=== PATIENT | female | born 1960 | race African-American/Black ===

== ENCOUNTER 2017-05-22 14:36 | Emergency (ER) | payer SELFPAY ==
[2017-05-22] MEDS ORDERED: Sodium Chloride 0.9% 10 ML Syringe FLUSH PRN (15:02)
[2017-05-22] MEDS ORDERED: Sodium Chloride 0.9% 2.5 ML Syringe FLUSH PRN (15:02)
--- NOTE | 2017-05-22 15:06 | EDM.PDOC ---
ED HPI GENERAL MEDICAL PROBLEM - General Chief Complaint: Cardiovascular Problem Stated Complaint: PAIN AND NUMBNESS ON LT SHOULDER Time Seen by Provider: 05/22/17 15:00 Source of Information: Reports: Patient History Limitations: Reports: No Limitations - History of Present Illness INITIAL COMMENTS - FREE TEXT/NARRATIVE: HISTORY AND PHYSICAL: [56-year-old female presenting with complaints of numbness and tingling in the left arm.] History of Present Illness: [56-year-old female presents to the emergency room today with complaints of numbness and tingling in her left arm which radiates up into her neck for the past 4 days. Patient reports that she felt like she slept "on my arm wrong" though wanted to be evaluated. Family history of cardiac disease.] Review of Systems: As per history of present illness and below otherwise all systems reviewed and negative. Past medical history: As per history of present illness and as reviewed below otherwise noncontributory. Surgical history: As per history of present illness and as reviewed below otherwise noncontributory. Social history: No reported history of drug or alcohol abuse. Family history: As per history of present illness and as reviewed below otherwise noncontributory. Physical exam: HEENT: Atraumatic, normocehpalic, pupils reactive, negative for conjunctival pallor or scleral icterus, mucous membranes moist, throat clear, neck supple, nontender, trachea midline. Lungs: Clear to auscultation, breath sounds equal bilaterally, chest non tender. Heart: S1S2, regular, negative for clicks, rubs, or JVD. Abdomen: Soft, nondistended, nontender. Negative for masses or hepatossplenmegaly. Negative for costovertebral tenderness. Pelvis: Stable nontender. Genitourinary: Deferred. Rectal: Deferred Extremities: Atraumatic, negative for cords or calf pain. Neurovascular unremarkable. Neuro: Awake, alert, oriented. Cranial nerves II through XII unremarkable. Cerebellum unremarkable. Motor and sensory unremarkable throughout. Exam nonfocal. Diagnostics: [CBC, CMP, troponin, EKG, UA, 1 view chest,] Therapeutics: [IV] Impression: [Degenerative disc disease] Plan: [Follow-up with neurology if numbness and tingling continue. establish primary care provider] Definitive disposition and diagnosis as appropriate pending reevaluation and review of above. - Related Data Allergies Allergy/AdvReac Type Severity Reaction Status Date / Time dust Allergy Difficulty Uncoded 05/22/17 14:53 Breathing Home Meds: Home Meds amLODIPine [Norvasc] 10 tab PO DAILY 09/30/16 [History] amLODIPine Besylate [Amlodipine Besylate] 10 mg PO DAILY #30 tablet 05/22/17 [Rx ] Past Medical History - Past Health History Medical/Surgical History: Denies Medical/Surgical History Other HEENT History: Tonsilectomy and adenoid removal Cardiovascular History: Reports: Hypertension Other Cardiovascular History: Pt stated taking blood pressure medications of diffent kinds for 5 years Respiratory History: Reports: Asthma Gastrointestinal History: Reports: Hiatal Hernia Other Musculoskeletal History: Pt compalins of pain on the lower back that's has been going on for more than a month now. Claimed did not take any medication for it. - Infectious Disease History Infectious Disease History: Reports: Chicken Pox - Past Surgical History HEENT Surgical History: Reports: Adenoidectomy, Tonsillectomy GI Surgical History: Reports: Hernia, Abdominal, Hernia, Inguinal, Hernia Repair /Other Female Surgical History: Reports: Section Social & Family History - Family History Family Medical History: Noncontributory - Tobacco Use Smoking Status *Q: Never Smoker Second Hand Smoke Exposure: No - Caffeine Use Caffeine Use: Reports: Coffee Caffeine Use Comment: Pt stated drinking coffee "every now and then" - Alcohol Use Days Per Week of Alcohol Use: 7 Number of Drinks Per Day: 1 Total Drinks Per Week: 7 - Recreational Drug Use Recreational Drug Use: No ED ROS GENERAL - Review of Systems Review Of Systems: See Below ED EXAM, GENERAL - Physical Exam Exam: See Below (See dictation) EKG INTERPRETATION EKG Date: 05/22/17 Rhythm: NSR Comparison: NA - No Prior EKG Course - Vital Signs Last Recorded V/S: Last Vital Signs Temp 36.4 C 05/22/17 14:50 Pulse 85 05/22/17 14:50 Resp 20 05/22/17 14:50 BP 124/69 05/22/17 14:50 Pulse Ox 97 05/22/17 15:16 - Orders/Labs/Meds Orders: Active Orders 24 hr Category Date Time Status Cardiac Monitoring [RC] . DIRECTED Care 05/22/17 15:02 Active EKG Documentation Completion [RC] STAT Care 05/22/17 15:02 Active Oxygen Therapy, ED [RC] ASDIRECTED Care 05/22/17 15:02 Active Cervical Spine 2V or 3V [CR] Stat Exams 05/22/17 16:02 Taken Sodium Chloride 0.9% [Saline Flush] Med 05/22/17 15:02 Active 10 ml FLUSH ASDIRECTED PRN Sodium Chloride 0.9% [Saline Flush] Med 05/22/17 15:02 Active 2.5 ml FLUSH ASDIRECTED PRN Saline Lock Insert [OM.PC] Stat Oth 05/22/17 15:02 Ordered Medication Orders Sodium Chloride (Saline Flush) 10 ml FLUSH ASDIRECTED PRN PRN Reason: Keep Vein Open Sodium Chloride (Saline Flush) 2.5 ml FLUSH ASDIRECTED PRN PRN Reason: Keep Vein Open Labs: Laboratory Tests 05/22/17 05/22/17 05/22/17 Range/Units 15:19 15:19 15:19 WBC 7.27 (4.0-11.0) K/uL RBC 4.34 (4.30-5.90) M/uL Hgb 13.1 (12.0-16.0) g/dL Hct 39.1 (36.0-46.0) % MCV 90.1 (80.0-98.0) fL MCH 30.2 (27.0-32.0) pg MCHC 33.5 (31.0-37.0) g/dL RDW Std Deviation 46.1 (28.0-62.0) fl RDW Coeff of Mary 14 (11.0-15.0) % Plt Count 180 (150-400) K/uL MPV 11.00 (7.40-12.00) fL Neut % (Auto) 57.2 (48.0-80.0) % Lymph % (Auto) 29.3 (16.0-40.0) % [place] % (Auto) 8.8 (0.0-15.0) % Eos % (Auto) 4.3 (0.0-7.0) % Baso % (Auto) 0.4 (0.0-1.5) % Neut # (Auto) 4.2 (1.4-5.7) K/uL Lymph # (Auto) 2.1 (0.6-2.4) K/uL [place] # (Auto) 0.6 (0.0-0.8) K/uL Eos # (Auto) 0.3 (0.0-0.7) K/uL Baso # (Auto) 0.0 (0.0-0.1) K/uL Nucleated RBC % 0.0 /100WBC Nucleated RBCs # 0 K/uL Sodium 143 (136-146) mmol/L Potassium 3.9 (3.5-5.1) mmol/L Chloride 110 (98-110) mmol/L Carbon Dioxide 27 (21-31) mmol/L BUN 19 (6.0-23.0) mg/dL Creatinine 1.0 (0.6-1.5) mg/dL Est Cr Clr Drug Dosing 52.95 mL/min Estimated GFR (MDRD) > 60.0 ml/min Glucose 83 (60-110) mg/dL Calcium 9.7 (8.8-10.8) mg/dL Total Bilirubin 1.1 (0.1-1.5) mg/dL AST 27 (5-40) IU/L ALT 31 (8-54) IU/L Alkaline Phosphatase 64 (40-150) Troponin I < 0.10 (0.0-0.29) NG/ML Total Protein 6.4 (6.0-8.0) g/dL Albumin 3.5 (3.5-5.0) g/dL Globulin 2.9 (2.0-3.5) g/dL Albumin/Globulin Ratio 1.2 L (1.3-2.8) Urine Color Urine Appearance Urine pH (5.0-8.0) Ur Specific [place] (1.001-1.035) Urine Protein (NEGATIVE) mg/dL Urine Glucose (UA) (NEGATIVE) mg/dL Urine Ketones (NEGATIVE) mg/dL Urine Occult Blood (NEGATIVE) Urine Nitrite (NEGATIVE) Urine Bilirubin (NEGATIVE) Urine Urobilinogen (<2.0) EU/dL Ur Leukocyte Esterase (NEGATIVE) Urine RBC (0-2/HPF) Urine WBC (0-5/HPF) Ur Epithelial Cells (NONE-FEW) Urine Bacteria (NEGATIVE) 05/22/17 Range/Units 15:35 WBC (4.0-11.0) K/uL RBC (4.30-5.90) M/uL Hgb (12.0-16.0) g/dL Hct (36.0-46.0) % MCV (80.0-98.0) fL MCH (27.0-32.0) pg MCHC (31.0-37.0) g/dL RDW Std Deviation (28.0-62.0) fl RDW Coeff of Mary (11.0-15.0) % Plt Count (150-400) K/uL MPV (7.40-12.00) fL Neut % (Auto) (48.0-80.0) % Lymph % (Auto) (16.0-40.0) % [place] % (Auto) (0.0-15.0) % Eos % (Auto) (0.0-7.0) % Baso % (Auto) (0.0-1.5) % Neut # (Auto) (1.4-5.7) K/uL Lymph # (Auto) (0.6-2.4) K/uL [place] # (Auto) (0.0-0.8) K/uL Eos # (Auto) (0.0-0.7) K/uL Baso # (Auto) (0.0-0.1) K/uL Nucleated RBC % /100WBC Nucleated RBCs # K/uL Sodium (136-146) mmol/L Potassium (3.5-5.1) mmol/L Chloride (98-110) mmol/L Carbon Dioxide (21-31) mmol/L BUN (6.0-23.0) mg/dL Creatinine (0.6-1.5) mg/dL Est Cr Clr Drug Dosing mL/min Estimated GFR (MDRD) ml/min Glucose (60-110) mg/dL Calcium (8.8-10.8) mg/dL Total Bilirubin (0.1-1.5) mg/dL AST (5-40) IU/L ALT (8-54) IU/L Alkaline Phosphatase (40-150) Troponin I (0.0-0.29) NG/ML Total Protein (6.0-8.0) g/dL Albumin (3.5-5.0) g/dL Globulin (2.0-3.5) g/dL Albumin/Globulin Ratio (1.3-2.8) Urine Color YELLOW Urine Appearance CLEAR Urine pH 6.0 (5.0-8.0) Ur Specific [place] 1.025 (1.001-1.035) Urine Protein 100 (NEGATIVE) mg/dL Urine Glucose (UA) NEGATIVE (NEGATIVE) mg/dL Urine Ketones NEGATIVE (NEGATIVE) mg/dL Urine Occult Blood MODERATE (NEGATIVE) Urine Nitrite NEGATIVE (NEGATIVE) Urine Bilirubin NEGATIVE (NEGATIVE) Urine Urobilinogen 0.2 (<2.0) EU/dL Ur Leukocyte Esterase NEGATIVE (NEGATIVE) Urine RBC 1-2 (0-2/HPF) Urine WBC 0-1 (0-5/HPF) Ur Epithelial Cells FEW (NONE-FEW) Urine Bacteria FEW (NEGATIVE) Meds: Medications Generic Name Dose Route Start Last Admin Trade Name Freq PRN Reason Stop Dose Admin Sodium Chloride 10 ml 05/22/17 15:02 Saline Flush FLUSH ASDIRECTED PRN Keep Vein Open Sodium Chloride 2.5 ml 05/22/17 15:02 Saline Flush FLUSH ASDIRECTED PRN Keep Vein Open Departure - Departure Time of Disposition: 17:09 Disposition: Home, Self-Care 01 Condition: Good Clinical Impression: HTN, Essential hypertension Degenerative disk disease Qualifiers: Spinal region: mid-cervical Mid-cervical spinal level: C5-C6 Qualified Code(s) : M50.322 - Other cervical disc degeneration at C5-C6 level Prescriptions: amLODIPine Besylate [Amlodipine Besylate] 10 mg PO DAILY #30 tablet Forms: ED Department Discharge Additional Instructions: The following information is given to patients seen in the emergency department who are being discharged to home. This information is to outline your options for follow-up care. We provide all patients seen in our emergency department with a follow-up referral. The need for follow-up, as well as the timing and circumstances, are variable depending upon the specifics of your emergency department visit. If you don't have a primary care physician on staff, we will provide you with a referral. We always advise you to contact your personal physician following an emergency department visit to inform them of the circumstance of the visit and for follow-up with them and/or the need for any referrals to a consulting specialist. The emergency department will also refer you to a specialist when appropriate. This referral assures that you have the opportunity for followup care with a specialist. All of these measure are taken in an effort to provide you with optimal care, which includes your followup. Under all circumstances we always encourage you to contact your private physician who remains a resource for coordinating your care. When calling for followup care, please make the office aware that this follow-up is from your recent emergency room visit. If for any reason you are refused follow-up, please contact the [facility] emergency department at and asked to speak to the emergency department charge nurse. [facility] Specialty Care - Neurology Professional Building [address] [place] [address], [address] [place] [address] [facility] Primary Care [address] [place] [id number] Please follow-up with neurology if you have continued numbness and tingling. Establish primary care in the next 1-2 days Follow up as needed as discussed - My Orders Last 24 Hours: My Active Orders 05/22/17 15:02 Cardiac Monitoring [RC] . DIRECTED EKG Documentation Completion [RC] STAT Oxygen Therapy, ED [RC] ASDIRECTED Sodium Chloride 0.9% [Saline Flush] 10 ml FLUSH ASDIRECTED PRN Sodium Chloride 0.9% [Saline Flush] 2.5 ml FLUSH ASDIRECTED PRN Saline Lock Insert [OM.PC] Stat 05/22/17 16:02 Cervical Spine 2V or 3V [CR] Stat - Assessment/Plan Last 24 Hours: My Active Orders 05/22/17 15:02 Cardiac Monitoring [RC] . DIRECTED EKG Documentation Completion [RC] STAT Oxygen Therapy, ED [RC] ASDIRECTED Sodium Chloride 0.9% [Saline Flush] 10 ml FLUSH ASDIRECTED PRN Sodium Chloride 0.9% [Saline Flush] 2.5 ml FLUSH ASDIRECTED PRN Saline Lock Insert [OM.PC] Stat 05/22/17 16:02 Cervical Spine 2V or 3V [CR] Stat
[2017-05-22 15:43] LABS: CHLORIDE,CL 110 mmol/L (98-110); SODIUM,NA 143 mmol/L (136-146)
--- NOTE | 2017-05-22 15:49 | CR ---
EXAMINATION: Portable chest radiograph. HISTORY: Shortness of breath. FINDINGS: The trachea is midline. The cardiomediastinal silhouette is within normal limits. No pulmonary infil trates, effusions or pneumothorax. Osseous structures appear unremarkable. IMPRESSION: No acute cardiopulmonary process.
[2017-05-22 18:45] VITALS: BP 152/100
--- NOTE | 2017-05-23 10:08 | CR ---
EXAM DATE: 05/22/17 PATIENT'S AGE: 56 Patient: ORI BULLOCK Facility: [place], [place] Site . Site : 1960 Study: XRay Spine Cervical [id number]/21/2017 4:41:45 PM Ordering Physician: Doctor Cary Final Report: INDICATION: Tingling in the left shoulder radiating up into the left neck. Numbness/ weakness to extremities. Fluctuating blood pressure. TECHNIQUE: Cervical spine 3 view. COMPARISON: None. FINDINGS: Mild to moderate multilevel degenerative changes most pronounced at C5-6 and C6- 7. No evidence of acute fracture or malalignment. No additional osseous abnormality. Paraspinal soft tissues as imaged are unremarkable. IMPRESSION: Degenerative changes most pronounced at C5-6 and C6-7. Dictated by Ayad Feliciano MD @ 05/22/2017 4:51:29 PM Dictated by: Ayad Feliciano MD @ 05/22/2017 16:51:33 (Electronic Signature) Report Signed by Proxy. [facility] HOSPITALRuben
== END 2017-05-22 17:21 | disposition home or self-care (01) ==
LOC: MW.ED 14:36
DX: I10 Essential (primary) hypertension (principal); J45.909 Unspecified asthma, uncomplicated; M50.322 Other cervical disc degeneration at C5-C6 level; Z98.890 Other specified postprocedural states
CPT/HCPCS: 36415; 71010; 71010-26; 72040; 72040-26; 80053; 81001; 84484; 85025; 93005; 99283; 99284-25

== ENCOUNTER 2019-01-07 16:16 | Emergency (ER) | payer MEDICAID ==
[2019-01-07 16:44] VITALS: BP 137/81
--- NOTE | 2019-01-07 16:59 | EDM.PDOC ---
ED HPI GENERAL MEDICAL PROBLEM - General Chief Complaint: Lower Extremity Injury/Pain Stated Complaint: SPKE TO NURSE Time Seen by Provider: 01/07/19 16:46 Bilateral Knee Pain Score (Numeric/FACES): 10 - Related Data Allergies Allergy/AdvReac Type Severity Reaction Status Date / Time lisinopril Allergy Cough Verified 01/07/19 16:38 dust Allergy Difficulty Uncoded 05/22/17 14:53 Breathing Home Meds: Home Meds amLODIPine [Norvasc] 10 tab PO DAILY 09/30/16 [History] Cyclobenzaprine [Flexeril] 10 mg PO TID PRN #30 tablet 05/22/17 [Rx] amLODIPine Besylate [Amlodipine Besylate] 10 mg PO DAILY #30 tablet 05/22/17 [Rx ] Furosemide [Lasix] 20 mg PO DAILY 01/07/19 [History] Past Medical History - Past Health History Medical/Surgical History: Denies Medical/Surgical History Other HEENT History: Tonsilectomy and adenoid removal Cardiovascular History: Reports: Hypertension Other Cardiovascular History: Pt stated taking blood pressure medications of diffent kinds for 5 years Respiratory History: Reports: Asthma Gastrointestinal History: Reports: Hiatal Hernia Other Musculoskeletal History: Pt compalins of pain on the lower back that's has been going on for more than a month now. Claimed did not take any medication for it. - Infectious Disease History Infectious Disease History: Reports: Chicken Pox - Past Surgical History HEENT Surgical History: Reports: Adenoidectomy, Tonsillectomy GI Surgical History: Reports: Hernia, Abdominal, Hernia, Inguinal, Hernia Repair /Other Female Surgical History: Reports: Section Social & Family History - Family History Family Medical History: Noncontributory - Tobacco Use Smoking Status *Q: Never Smoker - Caffeine Use Caffeine Use: Reports: Coffee Caffeine Use Comment: Pt stated drinking coffee "every now and then" - Recreational Drug Use Recreational Drug Use: No Course - Vital Signs Last Recorded V/S: Last Vital Signs Temp 97.4 F 01/07/19 16:39 Pulse 62 01/07/19 16:39 Resp 17 01/07/19 16:39 BP 137/81 01/07/19 16:39 Pulse Ox 94 L 01/07/19 16:39 Departure - Departure Time of Disposition: 16:59 Disposition: Home, Self-Care 01 Condition: Good Clinical Impression: Bilateral knee pain Qualifiers: Chronicity: acute Qualified Code(s): M25.561 - Pain in right knee; M25.562 - Pain in left knee - Discharge Information *PRESCRIPTION DRUG MONITORING PROGRAM REVIEWED*: No *COPY OF PRESCRIPTION DRUG MONITORING REPORT IN PATIENT ABBEY: No Referrals: PCP,Unknown [Primary Care Provider] - Additional Instructions: The following information is given to patients seen in the emergency department who are being discharged to home. This information is to outline your options for follow-up care. We provide all patients seen in our emergency department with a follow-up referral. The need for follow-up, as well as the timing and circumstances, are variable depending upon the specifics of your emergency department visit. If you don't have a primary care physician on staff, we will provide you with a referral. We always advise you to contact your personal physician following an emergency department visit to inform them of the circumstance of the visit and for follow-up with them and/or the need for any referrals to a consulting specialist. The emergency department will also refer you to a specialist when appropriate. This referral assures that you have the opportunity for follow-up care with a specialist. All of these measure are taken in an effort to provide you with optimal care, which includes your follow-up. Under all circumstances we always encourage you to contact your private physician who remains a resource for coordinating your care. When calling for follow-up care, please make the office aware that this follow-up is from your recent emergency room visit. If for any reason you are refused follow-up, please contact the [facility] Emergency Department at and asked to speak to the emergency department charge nurse. [facility] Primary Care [address] [place] [id number]
--- NOTE | 2019-02-07 09:05 | EDM.PDOC ---
ED HPI GENERAL MEDICAL PROBLEM - General Chief Complaint: Lower Extremity Injury/Pain Stated Complaint: SPKE TO NURSE Time Seen by Provider: 01/07/19 16:46 Source of Information: Reports: Patient History Limitations: Reports: No Limitations - History of Present Illness INITIAL COMMENTS - FREE TEXT/NARRATIVE: History of present illness: []Patient states has bilateral knee pain and having difficulty ambulating because of pain. Review of systems: As per history of present illness and below otherwise all systems reviewed and negative. Past medical history: As per history of present illness and as reviewed below otherwise noncontributory. Surgical history: As per history of present illness and as reviewed below otherwise noncontributory. Social history: No reported history of drug or alcohol abuse. Family history: As per history of present illness and as reviewed below otherwise noncontributory. Physical exam: General: Well developed, well nourished in NAD HEENT: Atraumatic, normocephalic, pupils reactive, negative for conjunctival pallor or scleral icterus, mucous membranes moist, throat clear, neck supple, nontender, trachea midline. Lungs: Clear to auscultation, breath sounds equal bilaterally, chest nontender. Heart: S1S2, regular, negative for clicks, rubs, or JVD. Abdomen: NABS, Soft, nondistended, nontender. Negative for masses or hepatosplenomegaly. Negative for costovertebral tenderness. Pelvis: Stable nontender. Genitourinary: Deferred. Rectal: Deferred. Extremities: Atraumatic, bilateral knee tenderness no obvious deformities or swelling negative for cords or calf pain. Neurovascular unremarkable. Neuro: Awake, alert, oriented. Cranial nerves II through XII unremarkable. Cerebellum unremarkable. Motor and sensory unremarkable throughout. Exam nonfocal. Skin:warm and dry Diagnostics: None Therapeutics: None ED Course: Stable Impression: Bilateral knee arthritis Prescriptions: None Plan: Ibuprofen and/or Tylenol for pain, follow-up with primary care Definitive disposition and diagnosis as appropriate pending reevaluation and review of above. Bilateral Knee Pain Score (Numeric/FACES): 10 - Related Data Allergies Allergy/AdvReac Type Severity Reaction Status Date / Time lisinopril Allergy Cough Verified 01/21/19 10:21 dust Allergy Difficulty Uncoded 05/22/17 14:53 Breathing Home Meds: Home Meds amLODIPine [Norvasc] 5 mg PO DAILY 09/30/16 [History] Aspirin [Adult Low Dose Aspirin EC] 81 mg PO DAILY 01/21/19 [History] Carvedilol 6.25 mg PO BID 01/21/19 [History] Furosemide [Lasix] 20 mg PO DAILY 01/21/19 [History] Losartan Potassium 100 mg PO DAILY 01/21/19 [History] atorvaSTATin Calcium [Atorvastatin Calcium] 40 mg PO DAILY 01/21/19 [History] Past Medical History - Past Health History Medical/Surgical History: Denies Medical/Surgical History Other HEENT History: Tonsilectomy and adenoid removal Cardiovascular History: Reports: Hypertension Other Cardiovascular History: Pt stated taking blood pressure medications of diffent kinds for 5 years Respiratory History: Reports: Asthma Gastrointestinal History: Reports: Hiatal Hernia Other Musculoskeletal History: Pt compalins of pain on the lower back that's has been going on for more than a month now. Claimed did not take any medication for it. - Infectious Disease History Infectious Disease History: Reports: Chicken Pox - Past Surgical History HEENT Surgical History: Reports: Adenoidectomy, Tonsillectomy GI Surgical History: Reports: Hernia, Abdominal, Hernia, Inguinal, Hernia Repair /Other Female Surgical History: Reports: Section Social & Family History - Family History Family Medical History: Noncontributory - Tobacco Use Smoking Status *Q: Never Smoker - Caffeine Use Caffeine Use: Reports: Coffee Caffeine Use Comment: Pt stated drinking coffee "every now and then" - Recreational Drug Use Recreational Drug Use: No Review of Systems - Review of Systems Review Of Systems: ROS reveals no pertinent complaints other than HPI. ED EXAM, GENERAL - Physical Exam Exam: See Below (See history of present illness) Course - Vital Signs Last Recorded V/S: Last Vital Signs Temp 97.4 F 01/07/19 16:39 Pulse 62 01/07/19 16:39 Resp 17 01/07/19 16:39 BP 137/81 01/07/19 16:39 Pulse Ox 94 L 01/07/19 16:39 Departure - Departure Time of Disposition: 09:05 Disposition: Home, Self-Care 01 Clinical Impression: Bilateral knee pain Qualifiers: Chronicity: acute Qualified Code(s): M25.561 - Pain in right knee - Discharge Information *PRESCRIPTION DRUG MONITORING PROGRAM REVIEWED*: No *COPY OF PRESCRIPTION DRUG MONITORING REPORT IN PATIENT ABBEY: No Instructions: Knee Pain, Adult Referrals: PCP,Unknown [Primary Care Provider] - Forms: ED Department Discharge Additional Instructions: The following information is given to patients seen in the emergency department who are being discharged to home. This information is to outline your options for follow-up care. We provide all patients seen in our emergency department with a follow-up referral. The need for follow-up, as well as the timing and circumstances, are variable depending upon the specifics of your emergency department visit. If you don't have a primary care physician on staff, we will provide you with a referral. We always advise you to contact your personal physician following an emergency department visit to inform them of the circumstance of the visit and for follow-up with them and/or the need for any referrals to a consulting specialist. The emergency department will also refer you to a specialist when appropriate. This referral assures that you have the opportunity for follow-up care with a specialist. All of these measure are taken in an effort to provide you with optimal care, which includes your follow-up. Under all circumstances we always encourage you to contact your private physician who remains a resource for coordinating your care. When calling for follow-up care, please make the office aware that this follow-up is from your recent emergency room visit. If for any reason you are refused follow-up, please contact the [facility] Emergency Department at and asked to speak to the emergency department charge nurse. [facility] Primary Care [address] [place] [id number]
== END 2019-01-07 17:20 | disposition home or self-care (01) ==
LOC: MW.ED 16:16
DX: M17.0 Bilateral primary osteoarthritis of knee (principal); Z88.8 Allergy status to other drugs, medicaments and biological substances; Z79.82 Long term (current) use of aspirin
CPT/HCPCS: 99283

== ENCOUNTER 2019-12-12 06:46 | Emergency (ER) | payer MEDICAID ==
--- NOTE | 2019-12-12 07:25 | EDM.PDOC ---
ED HPI GENERAL MEDICAL PROBLEM - General Chief Complaint: Neck Problem Stated Complaint: FELL DOWN STAIRS- HIT HEAD, NECK PAIN Time Seen by Provider: 12/12/19 06:57 Source of Information: Reports: Patient History Limitations: Reports: No Limitations - History of Present Illness INITIAL COMMENTS - FREE TEXT/NARRATIVE: HISTORY OF PRESENT ILLNESS: Patient is a 59-year-old female who presents to the ER status post fall. She states that she walked back into her house to get her cell phone this morning and was walking down the stairs when she fell forward. Fell down approximately 7-8 stairs and landed in a prone position. She believes that she may have lost consciousness very briefly but returned to full consciousness without sequelae. Complains of neck pain, upper back pain and left arm pain diffusely with tingling sensation. Pt had ACDF surgery March 2019 and has had problems in the past with radiculopathic left arm pain which essentially had resolved after the surgery, but still has intermittent episodes. Denies any chest pain, dyspnea or abdominal pain. No other extremity pain. Denies any hip pain. She is on ASA, not on anticoagulants. REVIEW OF SYSTEMS: Other than the symptoms associated with the present events, the following is reported with regard to recent health: General: (-) fever. HENT: (-) congestion. Respiratory: (-) cough. Cardiovascular: (-) chest pain. GI: (-) abdominal pain. : (-) urinary complaints. Musculoskeletal: (+) left arm pain Endocrine: (-) generalized weakness. Neurological: (+) left arm tingling Skin: (-) rash PAST MEDICAL HISTORY: reviewed as per nursing notes SOCIAL HISTORY: reviewed as per nursing notes, MEDICATIONS: Per nurse's note ALLERGIES: Per nurse's note, reviewed by me PHYSICAL EXAMINATION: GENERALIZED APPEARANCE: well developed, well nourished in mild distress VITAL SIGNS: Per nurse's note, reviewed by me SKIN: Warm, dry; (-) cyanosis; (+) superficial abrasion left eyebrow region laterally with hemostasis HEAD: (-) scalp swelling, see skin EYES: (-) conjunctival pallor, (-) scleral icterus. (+) left lateral inferior and superior orbital tenderness without step off or deformity ENMT: (-) stridor; mucous membranes moist. NECK: (+) diffuse tenderness, placed in c-collar upon arrival BACK: upper thoracic tenderness without step off or deformity. no LS tenderness. CHEST AND RESPIRATORY: (-) rales, (-) rhonchi, (-) wheezes; breath sounds equal bilaterally. HEART AND CARDIOVASCULAR: (-) irregularity; (-) murmur, (-) gallop. ABDOMEN AND GI: Soft; (-) tenderness, (-) guarding, (-) rebound, (-) palpable masses, EXTREMITIES: (-) deformity, (-) edema. no hip instability. (+) diffuse left UE tenderness, maximal to hand. 4.5/5+ strength LUE, 5/5+ strength RUE. 2+ radial pulses. sensation subjectively decreased in LUE as compared with right. cap refill < 2 sec. NEURO AND PSYCH: Alert. oriented x 3. normal speech. no gaze impairment. Cranial nerves grossly intact; strength as above. DIAGNOSTICS: CT head, cervical spine, thoracic spine, orbits:as per radiologist report, reviewed by myself. xray hand, forearm, humerus: as per radiologist report, reviewed by myself. EMERGENCY DEPARTMENT COURSE AND TREATMENT: Patient's condition remained stable during Emergency Department evaluation. Patient offered analgesia but declined initially. Diagnostics ordered and results reviewed and relayed to patient. MRI scheduled for Monday, kept in C-collar. She has had this type of pain/weakness in left arm in the past due to chronic cervical issues and is s/p surgery. She must f/u with pcp tomorrow and return immediately with any new or worsening symptoms. Given discharge precautions. Pt requesting pain medication here just prior to discharge. PLAN AND FOLLOW-UP: Patient received written and verbal instructions regarding this condition. Return to ED immediately with any new or worsening symptoms. Follow up to be arranged by patient with pcp in 1 days for further evaluation. Given discharge precautions. Patient expressed verbal understanding. neck/back/L arm Pain Score (Numeric/FACES): 10 - Related Data Allergies Allergy/AdvReac Type Severity Reaction Status Date / Time lisinopril Allergy Cough Verified 12/12/19 06:52 dust Allergy Difficulty Uncoded 12/12/19 06:52 Breathing Home Meds: Home Meds amLODIPine [Norvasc] 5 mg PO DAILY 09/30/16 [History] Aspirin [Adult Low Dose Aspirin EC] 81 mg PO DAILY 01/21/19 [History] Furosemide [Lasix] 20 mg PO DAILY 01/21/19 [History] Losartan Potassium 100 mg PO DAILY 01/21/19 [History] atorvaSTATin Calcium [Atorvastatin Calcium] 40 mg PO DAILY 01/21/19 [History] carvediloL [Carvedilol] 6.25 mg PO BID 01/21/19 [History] Past Medical History - Past Health History Medical/Surgical History: Denies Medical/Surgical History HEENT History: Reports: Other (See Below) Other HEENT History: Tonsilectomy and adenoid removal Cardiovascular History: Reports: Hypertension Other Cardiovascular History: Pt stated taking blood pressure medications of diffent kinds for 5 years Respiratory History: Reports: Asthma, Sleep Apnea Other Respiratory History: uses CPAP, states "mild" pulmonary hypertension Gastrointestinal History: Reports: Hiatal Hernia Genitourinary History: Reports: None [employer] History: Reports: Musculoskeletal History: Reports: Arthritis, Fracture Other Musculoskeletal History: Pt compalins of pain on the lower back that's has been going on for more than a month now. Claimed did not take any medication for it. Neurological History: Reports: None Psychiatric History: Reports: None Endocrine/Metabolic History: Reports: Obesity/BMI 30+ Hematologic History: Reports: None Immunologic History: Reports: None Oncologic (Cancer) History: Reports: None Dermatologic History: Reports: None - Infectious Disease History Infectious Disease History: Reports: Chicken Pox - Past Surgical History Head Surgeries/Procedures: Reports: None HEENT Surgical History: Reports: Adenoidectomy, Tonsillectomy Respiratory Surgical History: Reports: None GI Surgical History: Reports: Hernia, Abdominal, Hernia, Inguinal, Hernia Repair /Other Female Surgical History: Reports: Section Other Female Surgeries/Procedures: x 4 Endocrine Surgical History: Reports: None Neurological Surgical History: Reports: None Musculoskeletal Surgical History: Reports: None Oncologic Surgical History: Reports: None Dermatological Surgical History: Reports: None Social & Family History - Family History Family Medical History: Noncontributory - Tobacco Use Smoking Status *Q: Never Smoker - Caffeine Use Caffeine Use: Reports: Coffee Caffeine Use Comment: Pt stated drinking coffee "every now and then" - Recreational Drug Use Recreational Drug Use: No ED ROS GENERAL - Review of Systems Review Of Systems: See Below (see dictation) ED EXAM, HEAD INJURY - Physical Exam Exam: See Below (see dictation) Course - Vital Signs Last Recorded V/S: Last Vital Signs Temp 97.5 F 12/12/19 09:57 Pulse 63 12/12/19 10:52 Resp 18 12/12/19 10:52 BP 160/83 H 12/12/19 10:52 Pulse Ox 94 L 12/12/19 10:52 - Orders/Labs/Meds Orders: Active Orders 24 hr Category Date Time Status DME for Discharge [COMM] Stat Oth 12/12/19 12:31 Ordered Meds: Medications Discontinued Medications Generic Name Dose Route Start Last Admin Trade Name Freq PRN Reason Stop Dose Admin Oxycodone/Acetaminophen 1 tab 12/12/19 10:18 12/12/19 10:24 Percocet 325-5 Mg PO 12/12/19 10:19 1 tab ONETIME ONE Administration Departure - Departure Time of Disposition: 10:10 Disposition: Home, Self-Care 01 Condition: Good Clinical Impression: Cervical strain, acute, Fall (on) (from) other stairs and steps, initial encounter - Discharge Information *PRESCRIPTION DRUG MONITORING PROGRAM REVIEWED*: Not Applicable *COPY OF PRESCRIPTION DRUG MONITORING REPORT IN PATIENT ABBEY: Not Applicable Instructions: Fall Prevention in the Home, Adult, [id number], Cervical Sprain Referrals: PCP,None [Ordering Only Provider] - 1 Day (have outpatient MRI ordered) Forms: ED Department Discharge Additional Instructions: The following information is given to patients seen in the emergency department who are being discharged to home. This information is to outline your options for follow-up care. We provide all patients seen in our emergency department with a follow-up referral. The need for follow-up, as well as the timing and circumstances, are variable depending upon the specifics of your emergency department visit. If you don't have a primary care physician on staff, we will provide you with a referral. We always advise you to contact your personal physician following an emergency department visit to inform them of the circumstance of the visit and for follow-up with them and/or the need for any referrals to a consulting specialist. The emergency department will also refer you to a specialist when appropriate. This referral assures that you have the opportunity for follow-up care with a specialist. All of these measure are taken in an effort to provide you with optimal care, which includes your follow-up. Under all circumstances we always encourage you to contact your private physician who remains a resource for coordinating your care. When calling for follow-up care, please make the office aware that this follow-up is from your recent emergency room visit. If for any reason you are refused follow-up, please contact the [facility] Emergency Department at and asked to speak to the emergency department charge nurse. You have a follow up appointment with Dr. Davila at [facility] (address below) on 12/17/19 at 10:30 AM. Please arrive at least 15 minutes early for registration purposes. [address] [facility] [place] [address] 2nd Floor Sepsis Event Note - Evaluation Sepsis Screening Result: No Definite Risk - Focused Exam Vital Signs: Vital Signs Temp Pulse Resp BP Pulse Ox 12/12/19 10:52 63 18 160/83 H 94 L 12/12/19 09:57 97.5 F 63 158/94 H 94 L 12/12/19 06:54 97.8 F 67 22 H 157/87 H 94 L Date Exam was Performed: 12/12/19 Time Exam was Performed: 13:53 - My Orders Last 24 Hours: My Active Orders 12/12/19 12:31 DME for Discharge [COMM] Stat - Assessment/Plan Last 24 Hours: My Active Orders 12/12/19 12:31 DME for Discharge [COMM] Stat
--- NOTE | 2019-12-12 08:28 | CT ---
CT cervical spine Technique: Multiple axial sections were obtained from above C1 inferiorly to the top of T3. Reconstructed sagittal and coronal images were reviewed. Comparison: No prior cervical spine imaging is available. Findings: Degenerative change is noted between the dens and anterior arch of C1. Moderate disc space narrowing is noted at C3-4. Anterior osteophytes noted at C3-4. Surgery noted at C4-5 and C5-6. Orthopedic hardware is seen. Severe disc space narrowing of C6-7. Posterior osteophytes noted at C5-6 and C6-7. Mild disc space narrowing noted at C 71 as well as moderate disc space narrowing at T2-3. Mild diffuse degenerative apophyseal change is seen. Severe left-sided neural foraminal stenosis noted at C3-4. Mild bilateral neural foraminal stenosis noted at C4-5. Mild bilateral neural foraminal stenosis noted at C5-6. Mild left-sided neural foraminal stenosis noted at C6-7. Other neural foramina are felt to be patent. Minimal central canal stenosis noted at C5-6. No fracture is identified. No abnormal subluxation is appreciated. Impression: 1. Prior surgery and diffuse degenerative change. 2. No acute fracture or acute subluxation is seen. Diagnostic code #2 This report was dictated in MDT
--- NOTE | 2019-12-12 08:32 | CT ---
Head CT Technique: Multiple axial sections through the brain were obtained. Intravenous contrast was not utilized. Comparison: No prior intracranial imaging is available. Findings: Ventricles along with basal cisterns and sulci over the convexities are within normal limits for the patient's age. No abnormal parenchymal densities are seen. No evidence of intracranial hemorrhage. No midline shift or mass-effect is seen. Minimal basal ganglia calcification is noted. Paranasal sinuses show nothing acute. Mastoid sinuses also show nothing acute. No acute calvarial abnormality is appreciated. Impression: 1. Nothing acute is identified on noncontrast head CT exam. Diagnostic code #1 This report was dictated in MDT
--- NOTE | 2019-12-12 08:36 | CT ---
CT orbits Technique: Multiple axial sections through the orbits were obtained. Reconstructed coronal and sagittal images were obtained. Comparison: No prior facial bone CT exam. Findings: Right and left globes are symmetric. No retrobulbar abnormality is appreciated. Paranasal sinuses are clear with no mucosal thickening or air-fluid levels. No facial bone fracture is identified. Slight degenerative change is noted within the temporomandibular joints. Impression: 1. Slight degenerative change within the temporomandibular joints. 2. Nothing acute is appreciated on CT study of the orbits. Diagnostic code #2 This report was dictated in MDT
--- NOTE | 2019-12-12 08:37 | CT ---
CT thoracic spine Technique: Multiple axial images were obtained through the thoracic spine. Reconstructed coronal and sagittal images were obtained. Findings: Scattered disc space narrowing is noted. Endplate osteophytes are noted most prominent within the mid and lower thoracic spine. Bony structures are osteopenic. Vacuum disc phenomena is seen within several lower thoracic discs. Scattered degenerative apophyseal change is noted. Vertebral body heights are maintained. No acute fracture line is seen. No bony central canal stenosis is seen. Neural foramina appear grossly preserved. Impression: 1. Degenerative change as noted above. 2. Nothing acute is appreciated on CT study of the thoracic spine. Diagnostic code #2 This report was dictated in MDT
--- NOTE | 2019-12-12 08:40 | CR ---
Left forearm: 2 views of the left forearm were obtained. Comparison: No previous forearm study is available. Degenerative change is scattered within the left wrist. No fracture or other bony abnormality is identified. Impression: 1. Nothing acute is identified on 2 view left forearm study. Diagnostic code #2 This report was dictated in MDT
--- NOTE | 2019-12-12 08:43 | CR ---
Left hand: 2 views of the left hand were obtained. Comparison: No prior hand exam. Degenerative change is noted within the DIP joints. Lesser degenerative change is noted within the PIP joints. Mild degenerative change is noted within the CMC joint of the thumb. Well-corticated bony density which is compatible with old injury is noted off the ulnar styloid process. No discrete fracture or dislocation is seen. Impression: 1. Degenerative change. 2. Old injury off the ulnar styloid process. 3. Nothing acute is appreciated on two-view left wrist study. Diagnostic code #2 This report was dictated in MDT
--- NOTE | 2019-12-12 08:44 | CR ---
Left humerus: 2 views of the left humerus were obtained. Comparison: No previous study. Mild degenerative change is noted within the glenohumeral joint. No acute fracture or other bony abnormality is identified. Impression: 1. Mild degenerative change. 2. Nothing acute is identified on left humerus study. Diagnostic code #2 This report was dictated in MDT
--- NOTE | 2019-12-12 08:45 | CR ---
Left shoulder: 2 views of the left shoulder were obtained. Comparison: No prior left shoulder exam. Slight degenerative change is seen within the glenohumeral joint. Minimal inferior spurring is noted within the acromioclavicular joint. No acute fracture or dislocation is seen. Impression: 1. Mild degenerative change. 2. Nothing acute is identified on 2 view left shoulder study. Diagnostic code #2 This report was dictated in MDT
[2019-12-12 09:57] VITALS: PULSE 63
[2019-12-12] MEDS ORDERED: Acetaminophen/oxyCODONE 325-5 MG Tab PO ONE (10:18)
[2019-12-12 12:34] VITALS: BP 160/83
== END 2019-12-12 10:52 | disposition home or self-care (01) ==
LOC: MW.ED 06:46
DX: S16.1XXA Strain of muscle, fascia and tendon at neck level, initial encounter (principal); S00.212A Abrasion of left eyelid and periocular area, initial encounter; I10 Essential (primary) hypertension; J45.909 Unspecified asthma, uncomplicated; M19.90 Unspecified osteoarthritis, unspecified site; E66.9 Obesity, unspecified; Z68.41 Body mass index [BMI] 40.0-44.9, adult; Z88.8 Allergy status to other drugs, medicaments and biological substances; Z91.09 Other allergy status, other than to drugs and biological substances; Z79.899 Other long term (current) drug therapy; Z79.82 Long term (current) use of aspirin; W10.8XXA Fall (on) (from) other stairs and steps, initial encounter
CPT/HCPCS: 70450; 70480; 72125; 72128; 73030; 73060; 73090; 73120; 99284; A9270; 99283